=== PATIENT | male | born 1965 | race Asian ===

== ENCOUNTER 2022-09-27 01:02 | Day surgery (SDC) | payer BC, SELFPAY ==
[2022-09-20 15:36] VITALS: BMI 26.3
--- NOTE | 2022-09-26 14:06 | WPDANESEPPF ---
Anes - Initial Pre Proc Eval Procedure: Operation Date: 09/27/22 10:15 Proposed Procedures p Colonoscopy - Aden Nolan MD Date/Time: 09/26/22 14:06 Surgeon: Aden Nolan MD Pre Op Diagnosis: polyp of colon Patient Data Age: 57 Gender: M Height: 1.88 m Weight: 93 kg Allergies Allergy/AdvReac Type Severity Reaction Status Date / Time No Known Allergies Allergy Verified 09/27/22 09:42 Home Medications Medication Instructions Recorded Confirmed Type finasteride 5 mg tablet 5 mg PO DAILY 04/21/22 09/20/22 History silodosin 4 mg capsule 4 mg PO HS 09/20/22 09/20/22 History Patient hx anesthesia problems: none Family hx anesthesia problems: none Results Review: All pre-operative results and documents have been reviewed as part of the pre-operative evaluation. [facility] Past Medical History Medical History (Updated 09/27/22 @ 09:43 by Aden Nolan MD) BPH (benign prostatic hyperplasia) Colon polyp High cholesterol Intermittent palpitations Family History Family History Sibling Thyroid disorder Social History Social History Smoking status: Never smoker Alcohol intake: current Drinks per week: 7 Substance use: never Substance use type: does not use Living arrangements: with family Spiritual care concerns: No Anes - Eval Final PreProcedure Day of Procedure 09/26/22 14:06 Patient weight: overweight Heart: regular rate and rhythm Lungs: clear to auscultation Airway: Mallampati scale class II Neurological: alert and oriented Last oral intake: >/= 8 hours ASA classification: II Emergent: no Anesthetic plan: proceed Anesthesia type and monitoring: general GIVS and standard monitoring Results Review: All pre-operative results and documents have been reviewed as part of the pre-operative evaluation. Informed Consent: The patient's anesthetic plan and its attendant risks and benefits were discussed with the patient/family/POA. Questions were solicited and answers provided to the satisfaction of the patient/family/POA.
[2022-09-27 09:42] VITALS: BP 115/77; PULSE 63; RESP 18; TEMP 36.2; O2SAT 100
--- NOTE | 2022-09-27 09:42 | PM.HPGS ---
History of Present Illness History of Present Illness Consent: Risks, benefits, and alternatives have been discussed and questions answered. Patient agrees to proceed with procedure. Chief complaint: polyp of colon Narrative: Gordon Pate is a 57 year old male with colon polyp 5 years ago Review of Systems Constitutional: Constitutional: Denies headache(s) and Denies weakness Eyes: Eyes: Denies blurry vision ENT: Reports Normal hearing present, Denies headache(s) and Denies neck pain Cardiovascular: Cardiovascular: Denies chest pain and Denies dyspnea Respiratory: Respiratory: Denies dyspnea Gastrointestinal: Gastrointestinal: Reports no additional gastrointestinal complaints Genitourinary: Genitourinary: Denies dysuria Musculoskeletal: Musculoskeletal: Denies neck pain Integumentary/Breasts: Skin/Breast: Denies dry skin Neurologic: Reports Normal hearing present, Denies headache(s) and Denies weakness Psychiatric: Psychiatric: Denies anxiety Endocrine: Endocrine: Denies change in body appearance Hematologic/Lymphatic: Hematologic/Lymphatic: Denies easy bleeding Allergic/Immunologic: Allergic/Immunologic: Denies urticaria [facility] Past Medical History Medical History (Updated 09/27/22 @ 09:43 by Aden Nolan MD) BPH (benign prostatic hyperplasia) Colon polyp High cholesterol Intermittent palpitations Family History Family History Sibling Thyroid disorder Social History Social History Smoking status: Never smoker Alcohol intake: current Drinks per week: 7 Substance use: never Substance use type: does not use Living arrangements: with family Spiritual care concerns: No Meds Home Medications and Allergies Home Medications Medication Instructions Recorded Confirmed Type finasteride 5 mg tablet 5 mg PO DAILY 04/21/22 09/20/22 History silodosin 4 mg capsule 4 mg PO HS 09/20/22 09/20/22 History Allergies Allergy/AdvReac Type Severity Reaction Status Date / Time No Known Allergies Allergy Verified 09/27/22 09:42 Exam Const: General: comfortable and no acute distress HENMT: Face/Nose/Sinus: Normal nares present Eyes: General: appearance normal, both eyes and all related structures Neck: Neck: no JVD Resp: Auscultation: clear to auscultation bilaterally Cardio: Rate: regular rate Rhythm: regular rhythm GI: Inspection: non-distended GI Palp: Yes Soft to palpation Skin: General skin exam: normal color Neuro: General: gait normal Speech: normal speech Extrem: General: normal to inspection Psych: Mental Status: mental status grossly normal Assessment and Plan Assessment and plan (1) Colon polyp: Code(s): K63.5 - Polyp of colon Status: Acute Assessment and Plan: colonoscopy
--- NOTE | 2022-09-27 09:58 | SUR.PREOP ---
[employer] services were used in obtaining consent and pre operative information. [facility] #[id number].
[2022-09-27] MEDS: LACTATED RINGERS 1,000 ML 150 ML IV CONT (10:04)
[2022-09-27 11:13] VITALS: BP 105/71; PULSE 75; RESP 20; O2SAT 96
[2022-09-27 11:23] VITALS: BP 100/67; PULSE 69; RESP 20; O2SAT 96
[2022-09-27 11:33] VITALS: BP 118/64; PULSE 62; RESP 16; O2SAT 98
--- NOTE | 2022-09-27 11:46 | SUR.PHASEII ---
All discharge instructions relayed to patient and via [employer] senior policy associate Ysoelyn (#[id number]). Patient and verbalized understanding and all questions answered.
== END 2022-09-27 11:46 | disposition home or self-care (01) ==
PROVIDERS: PCP Emergency Medicine; Visit Provider Internal Medicine Gastroenterology
PROC: 0DJD8ZZ Inspection of Lower Intestinal Tract, Via Natural or Artificial Opening Endoscopic (ICD-10-PCS; CPT 45378; principal; 2022-09-27 10:15)
DX: Z12.11 Encounter for screening for malignant neoplasm of colon (principal); Z86.010 Personal history of colon polyps; N40.0 Benign prostatic hyperplasia without lower urinary tract symptoms
CPT/HCPCS: 45378; J2704; J7120

== ENCOUNTER 2023-05-18 10:11 | Outpatient (CLI) | payer BC, SELFPAY ==
--- NOTE | 2023-05-18 10:16 | EST_ITS ---
Patient Info Name: Gordon Pate Age: 57 years : 1965 Gender: Male Ht: 62 in Wt: 210 lbs BSA: 2.09 m2 HR: 60 bpm BP: 140 / 97 mmHg Heart Rhythm: Sinus Rhythm Exam Date: 05/18/2023 10:33 AM Exam Location: Echo Lab Patient Status: Outpatient Admit Date: 05/18/2023 Staff Ordering Physician: Moose Teague DO Attending Provider: Moose Teague DO Exercise Technologist: Angela Slade CT Exercise Physician: Moose Teague DO Exam Type: CA stress test treadmill Study Info Indications R07.89 - Other chest pain A treadmill exercise stress test was performed. Summary 1. 1. Negative Richar exercise stress test for ischemic ST changes by ECG criteria. 2. 2. Good functional capacity, achieving 10 METs of workload. 3. 3. Appropriate HR response to exercise. 4. 4. Appropriate HR recovery at 1 minute post exercise. 5. 5. No imaging with stress testing. 6. 6. Patient informed of the above results. Protocol: Richar Stress ECG Details Stage: REST Duration (min): 0 min : 48 sec Speed (mph): 0.0 Grade (%): 0 HR (bpm): 60 SBP (mmHg): 140 DBP (mmHg): 97 METS: --- Stage: REST Duration (min): 7 min : 49 sec Speed (mph): 0.0 Grade (%): 0 HR (bpm): 73 SBP (mmHg): 140 DBP (mmHg): 97 METS: --- Stage: STAGE 1 Duration (min): 1 min : 0 sec Speed (mph): 1.7 Grade (%): 10 HR (bpm): 86 SBP (mmHg): 140 DBP (mmHg): 97 METS: --- Stage: STAGE 1 Duration (min): 2 min : 0 sec Speed (mph): 1.7 Grade (%): 10 HR (bpm): 98 SBP (mmHg): 140 DBP (mmHg): 97 METS: --- Stage: STAGE 1 Duration (min): 3 min : 0 sec Speed (mph): 1.7 Grade (%): 10 HR (bpm): 94 SBP (mmHg): 135 DBP (mmHg): 86 METS: --- Stage: STAGE 2 Duration (min): 1 min : 0 sec Speed (mph): 2.5 Grade (%): 12 HR (bpm): 102 SBP (mmHg): 135 DBP (mmHg): 86 METS: --- Stage: STAGE 2 Duration (min): 2 min : 0 sec Speed (mph): 2.5 Grade (%): 12 HR (bpm): 106 SBP (mmHg): 135 DBP (mmHg): 83 METS: --- Stage: STAGE 2 Duration (min): 3 min : 0 sec Speed (mph): 2.5 Grade (%): 12 HR (bpm): 110 SBP (mmHg): 135 DBP (mmHg): 83 METS: --- Stage: STAGE 3 Duration (min): 1 min : 0 sec Speed (mph): 3.4 Grade (%): 14 HR (bpm): 123 SBP (mmHg): 148 DBP (mmHg): 80 METS: --- Stage: STAGE 3 Duration (min): 2 min : 0 sec Speed (mph): 3.4 Grade (%): 14 HR (bpm): 133 SBP (mmHg): 148 DBP (mmHg): 80 METS: --- Stage: STAGE 3 Duration (min): 2 min : 49 sec Speed (mph): 3.4 Grade (%): 14 HR (bpm): 143 SBP (mmHg): 169 DBP (mmHg): 90 METS: --- Stage: RECOVERY Duration (min): 0 min : 10 sec Speed (mph): 1.5 Grade (%): 0 HR (bpm): 144 SBP (mmHg): 169 DBP (mmHg): 90 METS: --- Stage: RECOVERY Duration (min): 1 min : 10 sec Speed (mph): 0.0 Grade (%): 0 HR (bpm): 124 SBP (mmHg): 169 DBP (mmHg): 90 METS: ---
== END 2023-05-18 10:12 | disposition home or self-care (01) ==
PROVIDERS: PCP Emergency Medicine; Visit Provider Internal Medicine Cardiovascular Disease
DX: R07.9 Chest pain, unspecified (principal)
CPT/HCPCS: 93017